=== PATIENT | male | born 1940 | race Caucasian/White ===

== ENCOUNTER 2018-12-03 12:54 | Emergency (ER) | payer MEDICARE, OTHER ==
[~2018-12-03] VITALS: Ht 182.9 cm; Wt 75.0 kg
[2018-12-03 13:47] LABS: BASOPHILS # (AUTO) 0.04 x10^3/uL (0-0.1); BASOPHILS % (AUTO) 1 % (0-1); EOSINOPHILS # (AUTO) 0.14 x10^3/uL (0-0.4); EOSINOPHILS % (AUTO) 2 % (1-7); LYMPHOCYTES % (AUTO) 12 % (22-44); MD NO; MEAN CORPUSCULAR HEMOGLOBIN 34.9 pg (27.5-34.5); MEAN CORPUSCULAR HGB CONC 34.1 g/dL (33.2-36.2); MEAN CORPUSCULAR VOLUME 102.4 fL (81-97); MEAN PLATELET VOLUME 7.2 fL (7.4-10.4); MONOCYTES # (AUTO) 0.85 x10^3/uL (0.2-0.8); MONOCYTES % (AUTO) 11 % (2-9); NEUTROPHILS # (AUTO) 5.92 x10^3/uL (1.8-6.8); NEUTROPHILS % (AUTO) 76 % (42-75); PLATELET COUNT 266 x10^3/uL (130-400); RED BLOOD COUNT 3.96 x10^6/uL (4.38-5.82); RED CELL DISTRIBUTION WIDTH 13.9 % (9.4-14.8)
[2018-12-03 13:55] LABS: ALBUMIN 3.8 g/dL (3.4-5.0); ANION GAP 5 mmol/L (5-15); CALCIUM 8.6 mg/dL (8.5-10.1); CHLORIDE 108 mmol/L (98-107); CREATININE 1.24 mg/dL (0.7-1.3)
--- NOTE | 2018-12-03 15:11 | NUR ---
TO ROOM FROM LOBBY. NAD.
[2018-12-03 16:12] LABS: MICROSCOPIC INDICATED
[2018-12-03 16:18] LABS: CULTURE INDICATED? NO
[2018-12-03 17:08] VITALS: BP 138/68
== END 2018-12-03 17:10 | disposition home or self-care (01) ==
LOC: ED 16:54
DX: R31.0 Gross hematuria (principal); Z85.46 Personal history of malignant neoplasm of prostate
CPT/HCPCS: 36415; 80048; 81001; 82040; 85025; 99283